=== PATIENT | male | born 1975 | race Caucasian/White ===

== ENCOUNTER 2021-02-07 14:45 | Emergency (ER) | payer OTHER ==
[~2021-02-07] VITALS: Ht 188 cm; Wt 129.3 kg
[~2021-02-07 14:45] MED LIST: ADDERALL 20 MG20 MG PO; AMBIEN; ATIVAN1 MG PO; AUGMENTIN 875-1 EACH PO; BACITRACIN3.5 GM TOP; BENICAR; CIPRO500 M1 PO; DEPAKOTE 250MG250 M1; DEPAKOTE250 MG; FLEXERIL PO; HYDROCODONE-AP1 EAC6 PO; LEVAQUIN 500 M500 MG PO; LEXAPRO 10 MG T10 M1; NEURONTIN 300300 M1 PO; NORCO 5-325 TA1 EACH PO; PERCOCET 10-321 EACH PO; PREVACID PO; RISPERIDONE 00.25 M1 PO; TRAMADOL 50 MG50 MG PO; VALIUM5 MG PO; VYVANSE10 MG PO; VYVANSE70 MG; ZYPREXA; [UNRECOGNIZED DRUG - REMARK]
[2021-02-07] MEDS ORDERED: DOXYCYCLINE 10100 MG PO (15:00)
[2021-02-07] MEDS ORDERED: NORCO7.5 PO (15:00)
[2021-02-07 15:50] VITALS: BP 126/90
== END 2021-02-07 15:50 | disposition home or self-care (01) ==
LOC: ER 14:45
DX: H60.12 Cellulitis of left external ear (principal); I10 Essential (primary) hypertension; F17.210 Nicotine dependence, cigarettes, uncomplicated; Z98.890 Other specified postprocedural states; Z79.891 Long term (current) use of opiate analgesic; Z79.899 Other long term (current) drug therapy; Z88.6 Allergy status to analgesic agent; Z88.5 Allergy status to narcotic agent; Z88.8 Allergy status to other drugs, medicaments and biological substances